=== PATIENT | female | born 1960 | race African-American/Black ===

== ENCOUNTER 2021-11-22 12:41 | Emergency (ER) | payer OTHER ==
[~2021-11-22] VITALS: Ht 175.3 cm; Wt 155.6 kg
[2021-11-22 12:56] VITALS: BP 146/70
--- NOTE | 2021-11-22 13:25 | NUR ---
PT TO ER BED 7 VIA W/C
--- NOTE | 2021-11-22 13:31 | NUR ---
PT C/O BILATERAL KNEE PAIN, STATES "KNEES GAVE OUT ON HER".
[2021-11-22] MEDS ORDERED: HYDROcodone/APAP 5/325 MG 1 TAB TAB PO ONE (13:40)
--- NOTE | 2021-11-22 13:58 | NUR ---
X-Ray at bedside.
--- NOTE | 2021-11-22 14:51 | NUR ---
PA Noel evaluating patient at bedside.
[2021-11-22] MEDS ORDERED: IBUP-2213 PO (15:24)
[2021-11-22] MEDS ORDERED: ACET-8386 PO (15:24)
--- NOTE | 2021-11-22 16:01 | NUR ---
L KNEE IMMOBILIZER APPLIED. + CMS.
[2021-11-22 16:10] VITALS: BP 129/76
--- NOTE | 2021-11-22 16:10 | NUR ---
Patient discharged with v/s stable. Written and verbal after care instructions given. Patient alert, oriented and verbalized understanding of instructions. Wheel Chair Assisted with to car. All questions addressed prior to discharge. ID band removed. Patient advised to follow up with PMD. Rx of Hydrocodone-Acetaminophen given. Opportunity to ask questions provided and answered.
--- NOTE | 2021-11-22 16:14 | NUR ---
The patient's care was reviewed and supervised by ED Agency Nurse 9, RN, RN.
== END 2021-11-22 16:10 | disposition home or self-care (01) ==
LOC: MED 12:41
DX: S83.92XA Sprain of unspecified site of left knee, initial encounter (principal); S83.91XA Sprain of unspecified site of right knee, initial encounter; E11.9 Type 2 diabetes mellitus without complications; I10 Essential (primary) hypertension; N18.9 Chronic kidney disease, unspecified; Z79.4 Long term (current) use of insulin; Z79.899 Other long term (current) drug therapy; Z88.1 Allergy status to other antibiotic agents; W18.30XA Fall on same level, unspecified, initial encounter; Y93.89 Activity, other specified; Y92.89 Other specified places as the place of occurrence of the external cause; Y99.8 Other external cause status
CPT/HCPCS: 29505; 73562; 73590; 73630; 99284; Q0092